=== PATIENT | female | born 1985 | race Caucasian/White ===

== ENCOUNTER 2017-11-20 16:16 | Emergency (ER) | payer OTHER ==
[2017-11-20 17:21] LABS: ABS Basophils 0.1 10^3/ul (0-0.2); ABS Eosinophils 0.2 10^3/ul (0-0.6); ABS Lymphocytes 2.8 10^3/ul (1.0-4.8); ABS Monocytes 0.7 10^3/ul (0-0.8); ABS Neutrophils 8.9 10^3/ul (1.5-7.7); ABS Nucleated RBC 0 10^3/ul; Eosinophil % 1.8 % (0-6); Hematocrit 39 % (35-47); Hemoglobin 13.1 g/dl (12.0-16.0); Lymphocyte % 22.1 % (25-47); Mean Corpuscular HGB Conc 33 g/dl (31-36); Mean Corpuscular Hemoglobin 30 pg (27-31); Mean Corpuscular Volume 90 fL (80-97); Mean Platelet Volume 7.9 um3 (7.4-10.4); Nucleated Red Blood Cells % 0.1; Platelet Count 327 10^3/ul (150-450); Red Blood Count 4.36 10^6/ul (4.00-5.40); Red Cell Distribution Width 14 % (10.5-15); White Blood Count 12.8 10^3/ul (3.5-10.8)
[2017-11-20 17:37] LABS: EGFR Non-African American 100.3 (>60)
--- NOTE | 2017-11-20 18:07 | ED ---
Neurological HPI - HPI Summary HPI Summary: This is nika Sinclair documenting for attending Saul Duke MD. This patient is a 32 year old F presenting to [facility] accompanied by a woman with a chief complaint of worsening numbness and tingling in her hands and feet since yesterday. Pt had her thyroid removed 3 days ago and was told to seek medical attention if she experienced any numbness or tingling. Pt has taken Tums [employer] but they did not alleviate her symptoms. - History of Current Complaint Chief Complaint: EDGeneral Stated Complaint: LEGS AND ARMS TINGLING/POST SURGERY Time Seen by Provider: 11/20/17 17:09 Hx Obtained From: Patient Onset/Duration: Gradual Onset, Started days ago - 3 Timing: Constant Onset Severity: Moderate Current Severity: Moderate Pain Intensity: 0 Character: Numbness/Tingling - extremities - Allergy/Home Medications Allergies/Adverse Reactions: Allergies Allergy/AdvReac Type Severity Reaction Status Date / Time No Known Allergies Allergy Verified 11/20/17 16:35 Home Medications: Home Medications Levothyroxine Sodium [Levoxyl] 175 mcg PO DAILY 11/20/17 [History Confirmed 09/02] PMH/Surg Hx/FS Hx/Imm Hx Endocrine/Hematology History: Denies: Hx Diabetes, Hx Anemia Cardiovascular History: Denies: Hx Congestive Heart Failure, Hx Hypertension GI History: Denies: Hx Jaundice History: Denies: Hx Renal Disease - Surgical History Surgery Procedure, Year, and Place: cholecystectomy Infectious Disease History: No Infectious Disease History: Denies: Traveled Outside the [place] in Last 30 Days - Family History Known Family History: Positive: Other - thyroid - Social History Alcohol Use: None Substance Use Type: Reports: None Smoking Status (MU): Never Smoked Tobacco Review of Systems Negative: Fever Positive: Numbness - extremities All Other Systems Reviewed And Are Negative: Yes Physical Exam - Summary Physical Exam Summary: Appearance: The patient is well-nourished in no acute distress and in no acute pain. Skin: The skin is warm and dry and skin color reflects adequate perfusion. HEENT: The head is normocephalic and atraumatic. The pupils are equal and reactive. The conjunctivae are clear and without drainage. Nares are patent and without drainage. Mouth reveals moist mucous membranes and the throat is without erythema and exudate. The external ears are intact. The ear canals are patent and without drainage. The tympanic membranes are intact. Neck: The neck is supple with full range of motion and non-tender. There are no carotid bruits. There is no neck vein distension. Respiratory: Chest is non-tender. Lungs are clear to auscultation and breath sounds are symmetrical and equal. Cardiovascular: Heart is regular rate and rhythm. There is no murmur or rub auscultated. There is no peripheral edema and pulses are symmetrical and equal. Abdomen: The abdomen is soft and non-tender. There are normal bowel sounds heard in all four quadrants and there is no organomegaly palpated. Musculoskeletal: There is no back tenderness noted. Extremities are non-tender with full range of motion. There is good capillary refill. There is no peripheral edema or calf tenderness elicited. No muscle spasms. Neurological: Patient is alert and oriented to person, place and time. The patient has symmetrical motor strength in all four extremities. Cranial nerves are grossly intact. Deep tendon reflexes are symmetrical and equal in all four extremities. Negative Chvosteks test. Psychiatric: The patient has an appropriate affect and does not exhibit any anxiety or depression. Triage Information Reviewed: Yes Vital Signs On Initial Exam: Initial Vitals Temp Pulse Resp BP Pulse Ox 98.2 F 76 14 159/98 98 11/20/17 16:32 11/20/17 16:32 11/20/17 16:32 11/20/17 16:32 11/20/17 16:32 Vital Signs Reviewed: Yes Diagnostics - Vital Signs Vital Signs Temp Pulse Resp BP Pulse Ox 11/20/17 16:32 98.2 F 76 14 159/98 98 - Laboratory Lab Results: Lab Results 11/20/17 11/20/17 Range/Units 17:13 17:13 WBC 12.8 H (3.5-10.8) 10^3/ul RBC 4.36 (4.00-5.40) 10^6/ul Hgb 13.1 (12.0-16.0) g/dl Hct 39 (35-47) % MCV 90 (80-97) fL MCH 30 (27-31) pg MCHC 33 (31-36) g/dl RDW 14 (10.5-15) % Plt Count 327 (150-450) 10^3/ul MPV 7.9 (7.4-10.4) um3 Neut % (Auto) 69.6 (38-83) % Lymph % (Auto) 22.1 L (25-47) % Mccreary % (Auto) 5.6 (0-7) % Eos % (Auto) 1.8 (0-6) % Baso % (Auto) 0.9 (0-2) % Absolute Neuts (auto) 8.9 H (1.5-7.7) 10^3/ul Absolute Lymphs (auto) 2.8 (1.0-4.8) 10^3/ul Absolute Monos (auto) 0.7 (0-0.8) 10^3/ul Absolute Eos (auto) 0.2 (0-0.6) 10^3/ul Absolute Basos (auto) 0.1 (0-0.2) 10^3/ul Absolute Nucleated RBC 0 10^3/ul Nucleated RBC % 0.1 Sodium 139 (135-145) mmol/L Potassium 3.7 (3.5-5.0) mmol/L Chloride 98 L (101-111) mmol/L Carbon Dioxide 32 (22-32) mmol/L Anion Gap 9 (2-11) mmol/L BUN 8 (6-24) mg/dL Creatinine 0.68 (0.51-0.95) mg/dL Est GFR ( Amer) 121.3 (>60) Est GFR (Non-Af Amer) 100.3 (>60) BUN/Creatinine Ratio 11.8 (8-20) Glucose 108 H (70-100) mg/dL Calcium 9.3 (8.6-10.3) mg/dL TSH 6.33 H (0.34-5.60) mcIU/mL Free T4 1.14 H (0.61-1.12) ng/dL Result Diagrams: 11/20/17 17:13 11/20/17 17:13 Lab Statement: Any lab studies that have been ordered have been reviewed, and results considered in the medical decision making process. - EKG 18:54 Cardiac Rate: NL EKG Rhythm: Sinus Rhythm - [address] Segment: Normal Ectopy: None EKG Interpretation: No STEMI Course/Dx - Course Course Of Treatment: Ms. Graves had thyroid surgery 2 days ago and had some tingling in her hands and feet today. She takes 2 tums a day subsequent to the surgery and she took the 2 today as well as 3 extra as she has been instructed to do if she gets tingling. She had no muscle spasms etc. here. Ionized calcium was 4.03 and I discussed situation with her surgeon Dr. Acosta. He felt that she could be given extra calcium here by mouth and discharged to follow up. She was given 2 g of calcium and did report that her tingling went away. - Diagnoses Provider Diagnoses: Hypocalcemia - Physician Notifications Discussed Care Of Patient With: Juarez Acosta MD Time Discussed With Above Provider: 19:06 Instructed by Provider To: Other - Reccommends PO calcium supplementation Discharge - Sign-Out/Discharge Documenting (check all that apply): Patient Departure - Discharge - Discharge Plan Condition: Stable Disposition: HOME Patient Education Materials: Hypocalcemia (ED) Referrals: Elijah Davis MD [Medical Doctor] - 3 Days Additional Instructions: RETURN TO THE EMERGENCY DEPARTMENT FOR CHANGING OR WORSENING SYMPTOMS. - Billing Disposition and Condition Condition: STABLE Disposition: Home
[2017-11-20] MEDS ORDERED: Calcium Carbonate CHEW TAB* 500 MG (TUMS) PO ONE (19:07)
[2017-11-20 20:33] VITALS: BP 118/67
== END 2017-11-20 20:31 | disposition home or self-care (01) ==
LOC: ED 16:16
DX: E83.51 Hypocalcemia (principal); R20.0 Anesthesia of skin; R20.2 Paresthesia of skin; Z98.890 Other specified postprocedural states
CPT/HCPCS: 36415; 80048; 82330; 84439; 84443; 85025; 93005; 99282

== ENCOUNTER 2021-04-15 19:31 | Inpatient (IN) ==
[2021-04-15] MEDS ORDERED: Dinoprostone 10 MG VAG.SUPP VAGINAL ONE (20:13)
[2021-04-15] MEDS ORDERED: Lactated Ringers 1000 ml BAG 1,000 ML IV ONE (20:13)
[2021-04-15] MEDS ORDERED: Buffered Lidocaine 1% SYRIN 1 ml INTRADERM ONE (20:13)
[2021-04-15] MEDS ORDERED: Lactated Ringers 1000 ml BAG 1,000 ML IV SCH (21:00)
[2021-04-15 23:29] LABS: Urine Benzodiazepine Screen None Detected (None Detect); Urine Cannabinoids Screen None Detected (None Detect); Urine Opiates Screen None Detected (None Detect)
[2021-04-16 01:50] LABS: Hematocrit 35 % (35-47); Hemoglobin 11.7 g/dL (12.0-16.0); Mean Corpuscular HGB Conc 34 g/dL (31-36); Mean Corpuscular Hemoglobin 31 pg (27-31); Mean Corpuscular Volume 91 fL (80-97); Mean Platelet Volume 8.3 fL (7.4-10.4); Platelet Count 299 10^3/uL (150-450); Red Blood Count 3.83 10^6 /uL (3.70-4.87); Red Cell Distribution Width 14 % (10-15); White Blood Count 14.9 10^3/uL (3.5-10.8)
[2021-04-16] MEDS ORDERED: OBEPIDURAL 250 ML EPIDURAL ONE (02:00)
[2021-04-16 02:09] LABS: Albumin 3.5 g/dL (3.2-5.2); Albumin/Globulin Ratio 1.2 (1-3); Calcium 8.6 mg/dL (8.6-10.3); Potassium 3.5 mmol/L (3.5-5.0); Total Bilirubin 0.4 mg/dL (0.2-1.0); Total Protein 6.5 g/dL (6.4-8.9); Uric Acid 4.2 mg/dL (2.3-6.6); eGFR CKD-EPI 126.6 (>60)
[2021-04-16] MEDS ORDERED: Terbutaline INJ 1 MG/ML 1 ml VIAL ONE (03:01)
[2021-04-16] MEDS ORDERED: ceFOXitin 2 GM IVPREMIX 0 GM/0 ML BAG ONE (03:06)
[2021-04-16] MEDS ORDERED: Sodium Citrate/Citric Acid LIQ 15 ML UDC ONE (03:09)
[2021-04-16] MEDS ORDERED: Sodium Citrate/Citric Acid LIQ 15 ML UDC PO PRN (03:14)
[2021-04-16] MEDS ORDERED: Phenylephrine 40 mcg/mL 10mL (400mcg) SYRINGE IV PUSH PRN ×2 (03:14)
[2021-04-16] MEDS ORDERED: Lactated Ringers 1000 ml BAG 1,000 ML IV ONE (03:14)
[2021-04-16] MEDS ORDERED: Lactated Ringers 1000 ml BAG 1,000 ML IV SCH ×2 (04:00→12:00)
[2021-04-16] MEDS ORDERED: OBEPIDURAL 250 ML EPIDURAL SCH (04:00)
[2021-04-16 04:55] LABS: Urine Appearance Cloudy; Urine Bilirubin Negative (Negative); Urine Blood 2+ (Negative); Urine Color Amber; Urine Glucose Negative (Negative); Urine Ketones 2+ (Negative); Urine Nitrite Negative (Negative); Urine Protein 2+(100 mg/dL) (Negative); Urine Specific Gravity 1.026 (1.002-1.030); Urine Urobilinogen Negative (Negative)
[2021-04-16 05:02] LABS: Urine Bacteria Absent (Absent); Urine Red Blood Cell 3+(>10/hpf) (Absent); Urine Squamous Epithelial Cell Present (Absent); Urine White Blood Cell Trace(0-5/hpf) (Absent)
[2021-04-16] MEDS ORDERED: Terbutaline INJ 1 MG/ML 1 ml VIAL SUBCUT ONE (06:43)
[2021-04-16] MEDS ORDERED: Oxytocin in LR 20 UNITS/1,000 ML BAG IVPB ONE (10:09)
[2021-04-16] MEDS ORDERED: Witch Hazel PAD JAR TOPICAL PRN (11:15)
[2021-04-16] MEDS ORDERED: Tetan/Diph/Pertus SYR(Tdap) 0.5 ML SYR(BOOSTRIX) use SYR contains LATEX IM ONE (11:15)
[2021-04-16] MEDS ORDERED: Dibucaine 1% OINT 28.35 GM TUBE PR PRN (11:15)
[2021-04-16] MEDS ORDERED: Glycerin ADULT 2.4 gm SUPP PR PRN (11:15)
[2021-04-16] MEDS ORDERED: Oxytocin in LR 20 UNITS/1,000 ML BAG IVPB SCH (12:00)
[2021-04-16] MEDS ORDERED: Carboprost Tromethamine 250 mcg 1 ml VIAL ONE (12:50)
[2021-04-16] MEDS ORDERED: Carboprost Tromethamine 250 mcg 1 ml VIAL IM ONE (12:55)
[2021-04-16] MEDS ORDERED: Lidocaine 1% VIAL 10 MG/ML VIAL ONE (18:17)
[2021-04-17 07:26] LABS: ABS Basophils 0.1 10^3/ul (0-0.2); ABS Eosinophils 0.2 10^3/ul (0-0.6); ABS Lymphocytes 2.6 10^3/ul (1.0-4.8); ABS Monocytes 0.7 10^3/ul (0-0.8); ABS Neutrophils 6.6 10^3/ul (1.5-7.7); Eosinophil % 1.8 %; Hematocrit 23 % (35-47); Hemoglobin 7.7 g/dL (12.0-16.0); Lymphocyte % 25.5 %; Mean Corpuscular HGB Conc 34 g/dL (31-36); Mean Corpuscular Hemoglobin 31 pg (27-31); Mean Corpuscular Volume 93 fL (80-97); Mean Platelet Volume 8.5 fL (7.4-10.4); Platelet Count 224 10^3/uL (150-450); Red Blood Count 2.44 10^6 /uL (3.70-4.87); Red Cell Distribution Width 14 % (10-15); White Blood Count 10.2 10^3/uL (3.5-10.8)
[2021-04-17 18:54] VITALS: BP 125/83
== END 2021-04-17 17:33 | disposition home or self-care (01) | DRG 806 ==
LOC: MCHOBOUT 19:31 → MCHOB 20:18
PROVIDERS: ADMIT Obstetrics & Gynecology; ATTEND Obstetrics & Gynecology